=== PATIENT | female | born 1985 | race Asian ===

== ENCOUNTER 2023-09-30 19:33 | Emergency (ER) | payer BC, SELFPAY ==
[2023-09-30 19:47] VITALS: BP 136/92
[2023-09-30 20:44] VITALS: BMI 21.8
--- NOTE | 2023-09-30 21:27 | ED.GENMED ---
History of Present Illness
General
Chief Complaint: Skin Problem
Source: patient and spouse
Exam Limitations: none
Time Seen by Provider: 09/30/23 21:13
Nursing documentation reviewed up to this point in time: agreed with
Travel History
Have you had any contact with someone who has COVID-19?: No
Do you have any symptoms of coronavirus? Fever > 100 degrees, chills, cough, shortness of breath, sore throat, loss of taste or smell, muscle aches, or headache?: No
History of Present Illness
History of Present Illness:
38-year-old female presenting to the emergency department today with concerns of rash to her face and upper chest over the past 10 days or so. She was prescribed a Medrol Dosepak from urgent care 7 days ago concluded a few days ago and had quick
recurrence of symptoms. Denies any trouble swallowing breathing no shortness of breath no abdominal pain no nausea vomiting no lightheadedness. Denies any known allergies or ongoing exposures.
Past History
Past History
ED Past Medical History: None
ED Past Surgical History: Gynecological (Laparoscopic surgery for right ectopic May 2012, Dr. Watts)
Social History
Tobacco: Non-smoker
Alcohol: None
Drug: None
Personal:
Living: with family
Employment: Employed
Family History
Family History: Other
Review of Systems
Review of Systems
Allergies reviewed?: Yes
All Other Systems: ROS reviewed and negative except as documented in HPI and ROS
Phy Exam
Physical Exam
Physical Exam:
GENERAL: Alert , in no apparent distress
EYE: pupils equal and reactive
NECK: Supple, no significant adenopathy.
ENT: o/p clr, mmm. Normal-appearing posterior pharynx
CARDIAC: Regular rate and rhythm .
LUNGS: Clear breath sounds bilaterally, no acute respiratory distress, no wheezes/rales/rhonchi
ABDOMEN: Soft, without focal tenderness, no r/g, no cvat
NEUROLOGICAL: Alert and oriented, no focal neuro deficits
SKIN: Scattered raised wheals to the upper chest and face as well as around the eyes bilaterally no involvement of the upper extremities abdomen back or lower extremities warm and dry, skin intact.
MUSCULOSKELETAL: No edema, well perfused.
PSYCH: Normal and appropriate interaction.
Course
Orders/Labs/Results
Orders:
Orders
09/30/23 21:26
Prednisone [Deltasone] 50 mg PO NOW STA
Vital Signs
Initial and Last Documented VS:
Initial Vital Signs
Temp Pulse Resp BP Pulse Ox
98.1 F 65 18 136/92 100
09/30/23 19:47 09/30/23 19:47 09/30/23 19:47 09/30/23 19:47 09/30/23 19:47
Last Documented Vital Signs
Temp Pulse Resp BP Pulse Ox
98.1 F 65 18 136/92 100
09/30/23 19:47 09/30/23 19:47 09/30/23 19:47 09/30/23 19:47 09/30/23 19:47
MDM/Problems Addressed
MDM/Problems Addressed:
38-year-old female presenting to the emergency department today with concerns of hives to the upper chest and face. She had a Medrol Dosepak 1 week ago that improved symptoms but after concluding the medication symptoms recurred. Denies any
trouble swallowing breathing or any signs of symptoms consistent with anaphylaxis. Patient was written for longer course of steroid and advised for close outpatient follow-up with an counsellors. Return precautions given. Also written for an EpiPen
as needed.
*Critical Care Note
Total Time (30-74mins, 75-104mins- exclusive of procedures): Not Applicable
ED Attending Note
-
Portions of this chart may have been created with voice recognition software.� Occasional wrong word or��sound alike� substitutions may have occurred due to the inherent limitations of voice recognition software.
Discharge Plan
Departure
Patient Disposition: Home (Routine Discharge)
Date of Disposition: 09/30/23
Time of Disposition: 21:29
Patient with high blood pressure during this ER visit?: No
Condition: Good
Covid-19: Not Applicable
Discharge Problem:
Hives
Instructions: Hives (DC)
Prescriptions:
New
prednisone 10 mg Tablet
See Rx Instructions .ROUTE .COMPLEX Qty: 30 0RF
Rx Instructions:
Take By Mouth:
40 mg daily x3 days, 30 mg daily x3 days,
20 mg daily x3 days, 10 mg daily x3 days.
epinephrine [EpiPen 2-Juanjose] 0.3 mg/0.3 mL auto-injector
0.3 mg IM Q5-15M PRN (Reason: anaphylaxis) Qty: 2 0RF
No Action
PNV comb [id number] [id number] [] 1 EACH capsule
1 ea PO DAILY
acetaminophen 325 MG tablet
650 mg PO Q4HPRN PRN (Reason: mild pain) 0RF
ibuprofen 600 MG tablet
600 mg PO Q4HPRN PRN (Reason: cramps) Qty: 0 0RF
Referrals:
Tameka Gregg MD [Consulting Staff] - Follow up in 10 days
Activity Restrictions/Additional Instructions:
You came to the emergency department today with concerns of ongoing hives. Here no signs of anaphylaxis. You are written for a longer course of steroid which will hopefully fully resolve symptoms. Please continue taking the antihistamines.
Please follow closely with the counsellors for further assessment. Return to the emergency department for any worsening, new or concerning symptoms.
Interventions
Interventions:
*Risk Screen - Suicide Last Done: 09/30/23 20:44
*General Assessment Last Done: 09/30/23 20:44
*Neglect/Abuse Screening Last Done: 09/30/23 20:44
*ED COVID-19 Vaccine History Last Done: 09/30/23 20:44
ED-Skin Assessment Last Done: 09/30/23 20:44
[2023-09-30] MEDS: DELTASONE 50 MG PO (21:40)
== END 2023-09-30 21:50 | disposition home or self-care (01) ==
LOC: EMR 19:33
PROVIDERS: EMERGENCY PHYSICIAN Emergency Medicine; FAMILY PHYSICIAN Family Medicine
DX: L50.9 Urticaria, unspecified (principal)
CPT/HCPCS: 99283